=== PATIENT | female | born 1995 | race Caucasian/White ===

== ENCOUNTER → 2016-08-27 | Outpatient (CLI) | payer OTHER | LOC: MW.CHOBGYN 10:42 | PROVIDERS: ATTEND Obstetrics & Gynecology | DX: Z34.90 Encounter for supervision of normal pregnancy, unspecified, unspecified trimester (principal) | CPT/HCPCS: 81003 ==

== ENCOUNTER 2016-10-17 04:46 | Inpatient (IN) | payer OTHER ==
[~2016-10-17 04:46] MED LIST: Citric Acid/Sodium Citrate Solution 30 ML Cup PO SCH; Sodium Chloride 0.9% 10 ML Syringe FLUSH PRN; Sodium Chloride 0.9% 2.5 ML Syringe FLUSH PRN
[2016-10-17] MEDS ORDERED: ceFAZolin 2 GM in Premix Bag 1 BAG IV ONE (05:00)
[2016-10-17] MEDS: Lactated Ringers 1,000 ML IV SCH ×5 (05:29→18:33)
[2016-10-17] MEDS ORDERED: Octyl 2-Cyanoacrylate 1 Tube ONE (07:21)
[2016-10-17] MEDS ORDERED: Morphine PF 10 MG/10 ML SDV ONE (07:25)
[2016-10-17] MEDS ORDERED: Oxytocin 10 Units/1 ML SDV ONE (07:25)
[2016-10-17] MEDS ORDERED: ePHEDrine 50 MG/ML SDV ONE (07:25)
[2016-10-17] MEDS ORDERED: Ondansetron 4 MG/2 ML SDV ONE (07:25)
[2016-10-17] MEDS ORDERED: Sodium Chloride 0.9% 20 ML ONE ×2 (07:25→07:30)
[2016-10-17] MEDS ORDERED: ceFAZolin 1 GM Vial ONE (07:30)
--- NOTE | 2016-10-17 07:49 | PCM.PREANE ---
Preanesthetic Assessment - Procedure Proposed Procedure: 2nd - Anesthesia/Transfusion/Family Hx Anesthesia History: Prior Anesthesia Without Reaction (spinal for emergent c- section 2 yr ago, little memory of same) Family History of Anesthesia Reaction: No Transfusion History: No Prior Transfusion(s) Intubation History: Unknown - Review of Systems General: Other (GERD of , discomfort with ) Pulmonary: No Symptoms Cardiovascular: No Symptoms Gastrointestinal: Other (GERD) Neurological: No Symptoms Other: Reports: None - Physical Assessment NPO Status Date: 10/16/16 NPO Status Time: 22:00 Height: 5 ft 7 in Weight: 225 lb ASA Class: 2 Mental Status: Alert & Oriented x3 Airway Class: Mallampati = 1 Dentition: Reports: Normal Dentition Thyro-Mental Finger Breadths: 3 Mouth Opening Finger Breadths: 3 ROM/Head Extension: Full Lungs: Clear to auscultation, Normal respiratory effort Cardiovascular: Regular Rate, Regular Rhythm, No Murmurs Other: wearing glasses - Lab Values: Laboratory Last Values WBC 8.94 K/uL (4.0-11.0) 10/17/16 05:22 RBC 4.38 M/uL (4.30-5.90) 10/17/16 05:22 Hgb 12.6 g/dL (12.0-16.0) 10/17/16 05:22 Hct 37.6 % (36.0-46.0) 10/17/16 05:22 MCV 85.8 fL (80.0-98.0) 10/17/16 05:22 MCH 28.8 pg (27.0-32.0) 10/17/16 05:22 MCHC 33.5 g/dL (31.0-37.0) 10/17/16 05:22 RDW Std Deviation 41.0 fl (28.0-62.0) 10/17/16 05:22 RDW Coeff of Reyna 13 % (11.0-15.0) 10/17/16 05:22 Plt Count 263 K/uL (150-400) 10/17/16 05:22 MPV 10.80 fL (7.40-12.00) 10/17/16 05:22 Nucleated RBC % 0.0 /100WBC 10/17/16 05:22 Nucleated RBCs # 0 K/uL 10/17/16 05:22 Blood Type A NEGATIVE 10/17/16 05:22 Antibody Screen NEGATIVE 10/17/16 05:22 - Allergies Allergies/Adverse Reactions: Allergies Allergy/AdvReac Type Severity Reaction Status Date / Time No Known Allergies Allergy Verified 10/15/16 08:12 - Blood Blood Available: Yes Product(s) Available: PRBC (T and S) - Anesthesia Plan Pre-Op Medication Ordered: Antacids - Acknowledgements Anesthesia Type Planned: Spinal Pt an Appropriate Candidate for the Planned Anesthesia: Yes Alternatives and Risks of Anesthesia Discussed w Pt/Guardian: Yes Pt/Guardian Understands and Agrees with Anesthesia Plan: Yes PreAnesthesia Questionnaire HEENT History: Reports: Allergic Rhinitis, Other (See Below) Other HEENT History: wears glasses Respiratory History: Reports: Asthma, Other (See Below) Other Respiratory History: allergy induced asthma Gastrointestinal History: Reports: Other (See Below) Other Gastrointestinal History: heartburn with Genitourinary History: Reports: None 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: Psychiatric History: Reports: Anxiety, Depression Dermatologic History: Reports: Eczema Other Dermatologic History: eczema on arms - Past Surgical History Head Surgeries/Procedures: Reports: None Female Surgical History: Reports: Section - SUBSTANCE USE Smoking Status *Q: Never Smoker Recreational Drug Use History: No - HOME MEDS Home Medications: Home Meds Albuterol [IJD: Albuterol HFA] 2 puff INH ASDIRECTED PRN 10/15/16 [History] Fexofenadine/Pseudoephedrine [Latesha-D 24 Hour Tablet] 1 tab PO DAILY 10/15/16 [History] PNV95/Ferrous Fumarate/FA [ Vitamins Tablet] 1 tab PO DAILY 10/15/16 [ History] buPROPion HCl [Wellbutrin Xl] 150 mg PO DAILY 10/15/16 [History] - CURRENT (IN HOUSE) MEDS Current Meds: Current Medications Citric Acid/Sodium Citrate (Bicitra Solution) 30 ml PO .ONCE TSERING Last Admin: 10/17/16 06:50 Dose: 30 ml Lactated Ringer's (Ringers, Lactated) 1,000 mls @ 500 mls/hr IV .BOLUS TSERING Last Admin: 10/17/16 07:00 Dose: 500 mls/hr Sodium Chloride (Saline Flush) 10 ml FLUSH ASDIRECTED PRN PRN Reason: Keep Vein Open Sodium Chloride (Saline Flush) 2.5 ml FLUSH ASDIRECTED PRN PRN Reason: Keep Vein Open Discontinued Medications Cefazolin Sodium (Ancef) Confirm Administered Dose 2 gm .ROUTE .STK-MED ONE Stop: 10/17/16 07:31 Ephedrine Sulfate (Ephedrine Sulfate) Confirm Administered Dose 50 mg .ROUTE .STK-MED ONE Stop: 10/17/16 07:26 Cefazolin Sodium/Dextrose 2 gm (/ Premix) 50 mls @ 100 mls/hr IV ONETIME ONE Stop: 10/17/16 05:29 Sodium Chloride (Normal Saline) Confirm Administered Dose 20 mls @ as directed .ROUTE .STK-MED ONE Stop: 10/17/16 07:26 Sodium Chloride (Normal Saline) Confirm Administered Dose 20 mls @ as directed .ROUTE .STK-MED ONE Stop: 10/17/16 07:31 Morphine Sulfate (Duramorph Pf) Confirm Administered Dose 10 mg .ROUTE .STK-MED ONE Stop: 10/17/16 07:26 Octyl Cyanoacrylate (Dermabond Advance) Confirm Administered Dose 1 applic .ROUTE .STK-MED ONE Stop: 10/17/16 07:22 Ondansetron HCl (Zofran) Confirm Administered Dose 4 mg .ROUTE .STK-MED ONE Stop: 10/17/16 07:26 Oxytocin (Pitocin) Confirm Administered Dose 20 unit .ROUTE .STK-MED ONE Stop: 10/17/16 07:26
--- NOTE | 2016-10-17 07:55 | PCM.LDHP ---
L&D History of Present Illness - General Date of Service: 10/17/16 Admit Problem/Dx: Patient Status Order with Admit Dx/Problem 10/16/16 15:24 Patient Status [ADT] Routine Admission Diagnosis/Problem Admission Diagnosis/Problem - planned Source of Information: Patient History Limitations: Reports: No Limitations - History of Present Illness Improves with: Reports: None Worsens with: Reports: None Associated Symptoms: Reports: N - Related Data Allergies/Adverse Reactions: Allergies Allergy/AdvReac Type Severity Reaction Status Date / Time No Known Allergies Allergy Verified 10/15/16 08:12 Home Medications: Home Meds Albuterol [IJD: Albuterol HFA] 2 puff INH ASDIRECTED PRN 10/15/16 [History] Fexofenadine/Pseudoephedrine [Latesha-D 24 Hour Tablet] 1 tab PO DAILY 10/15/16 [History] PNV95/Ferrous Fumarate/FA [ Vitamins Tablet] 1 tab PO DAILY 10/15/16 [ History] buPROPion HCl [Wellbutrin Xl] 150 mg PO DAILY 10/15/16 [History] Past Medical History HEENT History: Reports: Allergic Rhinitis, Other (See Below) Other HEENT History: wears glasses Respiratory History: Reports: Asthma, Other (See Below) Other Respiratory History: allergy induced asthma Gastrointestinal History: Reports: Other (See Below) Other Gastrointestinal History: heartburn with Genitourinary History: Reports: 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: Psychiatric History: Reports: Anxiety, Depression Dermatologic History: Reports: Eczema Other Dermatologic History: eczema on arms - Past Surgical History Head Surgeries/Procedures: Reports: None Female Surgical History: Reports: Section Social & Family History - Tobacco Use Smoking Status *Q: Never Smoker - Recreational Drug Use Recreational Drug Use: No H&P Review of Systems - Review of Systems: Review Of Systems: See Below General: Reports: No Symptoms HEENT: Reports: No Symptoms Pulmonary: Reports: No Symptoms Cardiovascular: Reports: No Symptoms Gastrointestinal: Reports: No Symptoms Genitourinary: Reports: No Symptoms Musculoskeletal: Reports: No Symptoms Skin: Reports: No Symptoms Psychiatric: Reports: No Symptoms Neurological: Reports: No Symptoms Hematologic/Lymphatic: Reports: No Symptoms Immunologic: Reports: No Symptoms L&D Exam - Exam Exam: See Below - Vital Signs Weight: 102.058 kg - OB Specific Fundal Height In cm: 39 Contraction Intensity: Mild Movement: Active Heart Tones: Present Presentation: Vertex - Patient Data Lab Results Last 24 hrs: Laboratory Results - last 24 hr 10/17/16 10/17/16 Range/Units 05:22 05:22 WBC 8.94 (4.0-11.0) K/uL RBC 4.38 (4.30-5.90) M/uL Hgb 12.6 (12.0-16.0) g/dL Hct 37.6 (36.0-46.0) % MCV 85.8 (80.0-98.0) fL MCH 28.8 (27.0-32.0) pg MCHC 33.5 (31.0-37.0) g/dL RDW Std Deviation 41.0 (28.0-62.0) fl RDW Coeff of Reyna 13 (11.0-15.0) % Plt Count 263 (150-400) K/uL MPV 10.80 (7.40-12.00) fL Nucleated RBC % 0.0 /100WBC Nucleated RBCs # 0 K/uL Blood Type A NEGATIVE Antibody Screen NEGATIVE Result Diagrams: 10/17/16 05:22 Problem List Initiated/Reviewed/Updated: Yes Orders Last 24hrs: Active Orders 24 hr Category Date Time Status Patient Status [ADT] Routine ADT 10/16/16 15:24 Active Non Stress Test [RC] PER UNIT ROUTINE Care 10/16/16 15:24 Active Procedure Site Prep Instruct [RC] ASDIRECTED Care 10/16/16 15:24 Active Up ad Alejandra [RC] ASDIRECTED Care 10/16/16 15:24 Active Vital Signs [RC] PER UNIT ROUTINE Care 10/16/16 15:24 Active Citric Acid/Sodium Citrate [Bicitra Solution] Med 10/16/16 15:30 Active 30 ml PO .ONCE Lactated Ringers [Ringers, Lactated] 1,000 ml Med 10/16/16 15:30 Active IV .BOLUS Sodium Chloride 0.9% [Saline Flush] Med 10/16/16 15:24 Active 10 ml FLUSH ASDIRECTED PRN Sodium Chloride 0.9% [Saline Flush] Med 10/16/16 15:24 Active 2.5 ml FLUSH ASDIRECTED PRN Peripheral IV Insertion Adult [OM.PC] Routine Oth 10/16/16 15:24 Ordered Schedule Procedure [COMM] Per Unit Routine Oth 10/16/16 15:24 Ordered Resuscitation Status Routine Resus Stat 10/16/16 15:24 Ordered Medication Orders Citric Acid/Sodium Citrate (Bicitra Solution) 30 ml PO .ONCE TSERING Last Admin: 10/17/16 06:50 Dose: 30 ml Lactated Ringer's (Ringers, Lactated) 1,000 mls @ 500 mls/hr IV .BOLUS TSERING Last Admin: 10/17/16 07:00 Dose: 500 mls/hr Infusion: 10/17/16 07:00 Dose: 500 mls/hr Admin: 10/17/16 05:29 Dose: 500 mls/hr Sodium Chloride (Saline Flush) 10 ml FLUSH ASDIRECTED PRN PRN Reason: Keep Vein Open Sodium Chloride (Saline Flush) 2.5 ml FLUSH ASDIRECTED PRN PRN Reason: Keep Vein Open Assessment/Plan Comment:: Term admited for elective repeat C/section.
[2016-10-17] MEDS ORDERED: Acetaminophen/oxyCODONE 325-5 MG Tab PO PRN ×2 (08:45)
[2016-10-17] MEDS ORDERED: Lanolin 100% Cream 7 GM Tube TOP PRN (08:45)
[2016-10-17] MEDS ORDERED: Ibuprofen 800 MG Tab PO PRN (08:45)
[2016-10-17] MEDS ORDERED: Ondansetron 4 MG/2 ML SDV IV PRN (08:45)
[2016-10-17] MEDS ORDERED: diphenhydrAMINE 50 MG/ML SDV IVPUSH PRN (08:45)
[2016-10-17] MEDS ORDERED: Bisacodyl 10 MG Supp RECTAL PRN (08:45)
[2016-10-17] MEDS ORDERED: Nalbuphine 10 MG/1 ML Vial IVPUSH PRN (09:00)
[2016-10-17] MEDS ORDERED: Naloxone 0.4 MG/ML Syringe IVPUSH PRN (09:00)
[2016-10-17] MEDS: Ketorolac 30 MG/ML SDV IVPUSH SCH ×3 (09:23→21:52)
--- NOTE | 2016-10-17 10:35 | PCM.POSTAN ---
POST ANESTHESIA ASSESSMENT - MENTAL STATUS Mental Status: alert, oriented - RESPIRATORY Respiratory Status: respiratory rate WNL, airway patent, O2 saturation stable - CARDIOVASCULAR CV Status: pulse rate WNL, blood pressure stable - GASTROINTESTINAL GI Status: no symptoms - PAIN Pain Score: 0 (but she had pruritis - tx with Nubain, resolved) - POST OP HYDRATION Hydration Status: adequate & stable - OBSERVATIONS Free Text/Narrative:: Spinal at T12 level at discharge to phase II.
--- NOTE | 2016-10-17 11:08 | OR ---
SURGEON: Ge Perez MD DATE OF PROCEDURE: PREOPERATIVE DIAGNOSIS: Term , previous section, admitted for elective repeat section. POSTOPERATIVE DIAGNOSIS: Term , previous section, admitted for elective repeat section. OPERATION PERFORMED: Repeat low transverse section. 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 ESTIMATED BLOOD LOSS: 700 mL. COMPLICATIONS: None. FINDINGS: Normal uterus, tubes, and ovary. Male fetus. score reported to be 9 and 9 and weight 813. INDICATION FOR SURGERY: This patient had a previous section for CPD and she was admitted for elective repeat section. She was followed in our office. care was essentially uncomplicated and her GBS status was negative. PROCEDURE IN DETAIL: The patient was brought to the OR, properly identified, and after adequate level of spinal anesthesia, the patient was prepped and draped in sterile fashion as usual. A low transverse Pfannenstiel skin incision was done. Deepika fascia and rectus fascia were opened in the direction of the incision. The two recti muscles were and the peritoneal cavity was entered. Bladder flap was raised in the usual manner pushing the bladder away from the lower uterine segment. Low transverse uterine incision was done and extended manually. Hand and fetus were delivered, it was in a vertex position without any problem. The fetus was cried immediately, handed to the nurse resuscitator, who was present at the time of the delivery. The score was reported to be 9 and 9 and the weight 813. The placenta delivered spontaneous, complete, and intact and then repair of the lower uterine segment was done with 2-0 Vicryl continuous interlocking in 2 layers. Reperitonealization done with 3-0 Vicryl continuous and then the peritoneal cavity evacuated completely from all blood and blood clot and closed with 3-0 Vicryl continuous. The rectus fascia was closed with PDS double strand continuous and the Deepika fascia was closed with 3-0 Vicryl continuous and the skin was closed in a subcuticular fashion using 5-0 monofilamentous sutures. Instrument and sponge count was correct. The patient tolerated the procedure well and went to recovery room in stable and general condition. STEFAN / COMFORT /[id number]
[2016-10-17] MEDS: diphenhydrAMINE 50 MG/ML SDV IVPUSH PRN ×2 (11:24→20:24)
[2016-10-17] MEDS: Docusate Sodium 100 MG Cap PO SCH (21:51)
[2016-10-18] MEDS: Ketorolac 30 MG/ML SDV IVPUSH SCH ×2 (04:00→10:04)
--- NOTE | 2016-10-18 06:40 | PCM48HPAN ---
Post Anesthesia Note - EVALUATION WITHIN 48HRS OF ANESTHETIC Vital Signs in Normal Range: Yes Patient Participated in Evaluation: Yes Respiratory Function Stable: Yes Airway Patent: Yes Cardiovascular Function Stable: Yes Hydration Status Stable: Yes Pain Control Satisfactory: Yes Nausea and Vomiting Control Satisfactory: Yes Mental Status Recovered: Yes
[2016-10-18] MEDS: Docusate Sodium 100 MG Cap PO SCH (10:04)
--- NOTE | 2016-10-18 12:06 | PCM.PNPP ---
- General Info Date of Service: 10/18/16 Admission Dx/Problem (Free Text): Patient Status Order with Admit Dx/Problem 10/16/16 15:24 Patient Status [ADT] Routine Admission Diagnosis/Problem Admission Diagnosis/Problem - planned Functional Status: Reports: pain controlled, tolerating diet, ambulating, urinating - Review of Systems General: Reports: No Symptoms HEENT: Reports: no symptoms Pulmonary: Reports: no symptoms Cardiovascular: Reports: No Symptoms Gastrointestinal: Reports: No symptoms Genitourinary: Reports: no symptoms Musculoskeletal: Reports: no symptoms Skin: Reports: no symptoms Neurological: Reports: No Symptoms Psychiatric: Reports: no symptoms - General Info Date of Service: 10/18/16 - Patient Data Vital Signs - most recent: Last Vital Signs Temp 36.5 C 10/18/16 08:00 Pulse 88 10/18/16 08:00 Resp 16 10/18/16 08:00 BP 116/57 L 10/18/16 08:00 Pulse Ox 97 10/18/16 08:00 Weight - most recent: 102.058 kg I&O - last 24 hours: Intake & Output 10/17/16 10/18/16 10/18/16 22:59 06:59 14:59 Intake Total 970 Output Total 480 525 Balance 490 -525 Lab Results - last 24 hrs: Laboratory Results - last 24 hr 10/18/16 Range/Units 05:01 Hgb 10.4 L (12.0-16.0) g/dL Hct 32.2 L (36.0-46.0) % Med Orders - Current: Current Medications Bisacodyl (Dulcolax) 10 mg RECTAL .ONCE PRN PRN Reason: Constipation Citric Acid/Sodium Citrate (Bicitra Solution) 30 ml PO .ONCE TSERING Last Admin: 10/17/16 06:50 Dose: 30 ml Diphenhydramine HCl (Benadryl) 25 mg IVPUSH Q6H PRN PRN Reason: Itching or Nausea Docusate Sodium (Colace) 100 mg PO BID TSERING Last Admin: 10/18/16 10:04 Dose: 100 mg Emollient Ointment (Lansinoh Hpa) 0 gm TOP ASDIRECTED PRN PRN Reason: Sore Nipples Last Admin: 10/17/16 14:57 Dose: 1 tube Lactated Ringer's (Ringers, Lactated) 1,000 mls @ 500 mls/hr IV .BOLUS [facility] Last Infusion: 10/17/16 09:00 Dose: Infused Lactated Ringer's (Ringers, Lactated) 1,000 mls @ 125 mls/hr IV ASDIRECTED TSERING Last Admin: 10/17/16 18:33 Dose: 125 mls/hr Ibuprofen (Motrin) 800 mg PO Q8H PRN PRN Reason: mild pain or fever Ondansetron HCl (Zofran) 4 mg IV Q4H PRN PRN Reason: Nausea/Vomiting Oxycodone/Acetaminophen (Percocet 325-5 Mg) 1 tab PO Q4H PRN PRN Reason: Pain (moderate 4-6) Oxycodone/Acetaminophen (Percocet 325-5 Mg) 2 tab PO Q4H PRN PRN Reason: Pain (moderate 4-6) Sodium Chloride (Saline Flush) 10 ml FLUSH ASDIRECTED PRN PRN Reason: Keep Vein Open Sodium Chloride (Saline Flush) 2.5 ml FLUSH ASDIRECTED PRN PRN Reason: Keep Vein Open Discontinued Medications Cefazolin Sodium (Ancef) Confirm Administered Dose 2 gm .ROUTE .STK-MED ONE Stop: 10/17/16 07:31 Diphenhydramine HCl (Benadryl) 25 mg IVPUSH Q4H PRN PRN Reason: Itching Stop: 10/18/16 09:01 Last Admin: 10/17/16 20:24 Dose: 25 mg Ephedrine Sulfate (Ephedrine Sulfate) Confirm Administered Dose 50 mg .ROUTE .STK-MED ONE Stop: 10/17/16 07:26 Cefazolin Sodium/Dextrose 2 gm (/ Premix) 50 mls @ 100 mls/hr IV ONETIME ONE Stop: 10/17/16 05:29 Sodium Chloride (Normal Saline) Confirm Administered Dose 20 mls @ as directed .ROUTE .STK-MED ONE Stop: 10/17/16 07:26 Sodium Chloride (Normal Saline) Confirm Administered Dose 20 mls @ as directed .ROUTE .STK-MED ONE Stop: 10/17/16 07:31 Ketorolac Tromethamine (Toradol) 30 mg IVPUSH Q6H TSERING Stop: 10/18/16 08:46 Last Admin: 10/18/16 10:04 Dose: 30 mg Morphine Sulfate (Duramorph Pf) Confirm Administered Dose 10 mg .ROUTE .STK-MED ONE Stop: 10/17/16 07:26 Nalbuphine HCl (Nubain) 5 mg IVPUSH Q3H PRN PRN Reason: Pruritis Stop: 10/18/16 09:01 Last Admin: 10/17/16 09:25 Dose: 5 mg Naloxone HCl (Narcan) 0.1 mg IVPUSH ONETIME PRN PRN Reason: Resp. Depression Stop: 10/18/16 09:01 Octyl Cyanoacrylate (Dermabond Advance) Confirm Administered Dose 1 applic .ROUTE .STK-MED ONE Stop: 10/17/16 07:22 Ondansetron HCl (Zofran) Confirm Administered Dose 4 mg .ROUTE .STK-MED ONE Stop: 10/17/16 07:26 Oxytocin (Pitocin) Confirm Administered Dose 20 unit .ROUTE .STK-MED ONE Stop: 10/17/16 07:26 - Interaction Disposition, : in Room with Family Infant Interaction: Holding Infant Feeding: Breastfed ; Nursed Well Support Person: - Recovery Exam Fundal Tone: Firm Fundal Level: 1 Fingerbreadths Below Umbilicus Fundal Placement: Midline Lochia Amount: Scant Lochia Color: Rubra/Red Perineum Description: Intact, Minimal Bruising/Swelling Episiotomy/Laceration: None Bladder Status: Voiding Urinary Elimination: Voided - Exam General: alert, oriented, cooperative, no acute distress Lungs: Normal respiratory effort Abdomen: soft, no tenderness, no distension Extremities: no edema, no tenderness/swelling, no calf tenderness Skin: warm, dry, intact Wound/Incisions: healing well, dressing dry and intact, no drainage Neurological: no new focal deficit Psy/Mental Status: alert, normal affect, normal mood - Problem List & Annotations (1) delivery due to maternal disorder, delivered, curr hospitaliz SNOMED Code(s): 095806051 Code(s): O99.89 - OTH DISEASES AND CONDITIONS COMPL PREG/CHLDBRTH; O82 - ENCOUNTER FOR DELIVERY WITHOUT INDICATION Status: Acute Priority: High Current Visit: Yes - Problem List Review Problem List Initiated/Reviewed/Updated: Yes - Assessment Assessment:: Doing well, no complaints. Desires to discharge home today. Will evaluate this evening and make that call. - Plan Plan:: Term admited for elective repeat C/section. Stable, continue pp plan of care
[2016-10-18 12:24] VITALS: BP 128/63
--- NOTE | 2016-10-18 16:10 | PCM.DCSUM1 ---
Discharge Summary - Discharge Data Discharge Date: 10/18/16 Discharge Disposition: Home, Self-Care 01 Condition: Good - Patient Instructions Diet: Usual Diet as Tolerated Driving: Do Not Drive Showering/Bathing: May Shower Wound/Incision Care: Keep Operative Site/Wound Site Clean and Dry Notify Provider of: Fever, Increased Pain, Nausea and/or Vomiting - Discharge Plan Home Medications: Home Meds Albuterol [IJD: Albuterol HFA] 2 puff INH ASDIRECTED PRN 10/15/16 [History] Fexofenadine/Pseudoephedrine [Latesha-D 24 Hour Tablet] 1 tab PO DAILY 10/15/16 [History] PNV95/Ferrous Fumarate/FA [ Vitamins Tablet] 1 tab PO DAILY 10/15/16 [ History] buPROPion HCl [Wellbutrin Xl] 150 mg PO DAILY 10/15/16 [History] Patient Handouts: Delivery, Care After Referrals: [facility] [Outside] Ge Perez MD [Physician] - (1 week- October 25 @ 9:00am w/ Dr. Perez 6 week - November 22 @ 10:45am w/ Dr. Perez ) - General Info Date of Service: 10/18/16 Functional Status: Reports: pain controlled - Review of Systems General: Reports: No Symptoms HEENT: Reports: no symptoms Pulmonary: Reports: no symptoms Cardiovascular: Reports: No Symptoms Gastrointestinal: Reports: No symptoms Genitourinary: Reports: no symptoms Musculoskeletal: Reports: no symptoms Skin: Reports: no symptoms Neurological: Reports: No Symptoms Psychiatric: Reports: no symptoms - Patient Data Vitals - Most Recent: Last Vital Signs Temp 36.2 C 10/18/16 12:00 Pulse 77 10/18/16 12:00 Resp 16 10/18/16 12:00 BP 128/63 10/18/16 12:00 Pulse Ox 97 10/18/16 12:00 Weight - Most Recent: 102.058 kg I&O - Last 24 hours: Intake & Output 10/18/16 10/18/16 10/18/16 06:59 14:59 22:59 Output Total 525 Balance -525 Lab Results - Last 24 hrs: Laboratory Results - last 24 hr 10/18/16 Range/Units 05:01 Hgb 10.4 L (12.0-16.0) g/dL Hct 32.2 L (36.0-46.0) % Med Orders - Current: Current Medications Bisacodyl (Dulcolax) 10 mg RECTAL .ONCE PRN PRN Reason: Constipation Citric Acid/Sodium Citrate (Bicitra Solution) 30 ml PO .ONCE [facility] Last Admin: 10/17/16 06:50 Dose: 30 ml Diphenhydramine HCl (Benadryl) 25 mg IVPUSH Q6H PRN PRN Reason: Itching or Nausea Docusate Sodium (Colace) 100 mg PO BID [facility] Last Admin: 10/18/16 10:04 Dose: 100 mg Emollient Ointment (Lansinoh Hpa) 0 gm TOP ASDIRECTED PRN PRN Reason: Sore Nipples Last Admin: 10/17/16 14:57 Dose: 1 tube Lactated Ringer's (Ringers, Lactated) 1,000 mls @ 500 mls/hr IV .BOLUS [facility] Last Infusion: 10/17/16 09:00 Dose: Infused Lactated Ringer's (Ringers, Lactated) 1,000 mls @ 125 mls/hr IV ASDIRECTED [facility] Last Admin: 10/17/16 18:33 Dose: 125 mls/hr Ibuprofen (Motrin) 800 mg PO Q8H PRN PRN Reason: mild pain or fever Ondansetron HCl (Zofran) 4 mg IV Q4H PRN PRN Reason: Nausea/Vomiting Oxycodone/Acetaminophen (Percocet 325-5 Mg) 1 tab PO Q4H PRN PRN Reason: Pain (moderate 4-6) Oxycodone/Acetaminophen (Percocet 325-5 Mg) 2 tab PO Q4H PRN PRN Reason: Pain (moderate 4-6) Sodium Chloride (Saline Flush) 10 ml FLUSH ASDIRECTED PRN PRN Reason: Keep Vein Open Sodium Chloride (Saline Flush) 2.5 ml FLUSH ASDIRECTED PRN PRN Reason: Keep Vein Open Discontinued Medications Cefazolin Sodium (Ancef) Confirm Administered Dose 2 gm .ROUTE .STK-MED ONE Stop: 10/17/16 07:31 Diphenhydramine HCl (Benadryl) 25 mg IVPUSH Q4H PRN PRN Reason: Itching Stop: 10/18/16 09:01 Last Admin: 10/17/16 20:24 Dose: 25 mg Ephedrine Sulfate (Ephedrine Sulfate) Confirm Administered Dose 50 mg .ROUTE .STK-MED ONE Stop: 10/17/16 07:26 Cefazolin Sodium/Dextrose 2 gm (/ Premix) 50 mls @ 100 mls/hr IV ONETIME ONE Stop: 10/17/16 05:29 Sodium Chloride (Normal Saline) Confirm Administered Dose 20 mls @ as directed .ROUTE .STK-MED ONE Stop: 10/17/16 07:26 Sodium Chloride (Normal Saline) Confirm Administered Dose 20 mls @ as directed .ROUTE .STK-MED ONE Stop: 10/17/16 07:31 Ketorolac Tromethamine (Toradol) 30 mg IVPUSH Q6H TSERING Stop: 10/18/16 08:46 Last Admin: 10/18/16 10:04 Dose: 30 mg Morphine Sulfate (Duramorph Pf) Confirm Administered Dose 10 mg .ROUTE .STK-MED ONE Stop: 10/17/16 07:26 Nalbuphine HCl (Nubain) 5 mg IVPUSH Q3H PRN PRN Reason: Pruritis Stop: 10/18/16 09:01 Last Admin: 10/17/16 09:25 Dose: 5 mg Naloxone HCl (Narcan) 0.1 mg IVPUSH ONETIME PRN PRN Reason: Resp. Depression Stop: 10/18/16 09:01 Octyl Cyanoacrylate (Dermabond Advance) Confirm Administered Dose 1 applic .ROUTE .STK-MED ONE Stop: 10/17/16 07:22 Ondansetron HCl (Zofran) Confirm Administered Dose 4 mg .ROUTE .STK-MED ONE Stop: 10/17/16 07:26 Oxytocin (Pitocin) Confirm Administered Dose 20 unit .ROUTE .STK-MED ONE Stop: 10/17/16 07:26 - Exam General: Reports: alert, oriented HEENT: Reports: Pupils equal, Pupils reactive, EOMI, Mucous membr. moist/pink Neck: Reports: supple Lungs: Reports: Clear to auscultation, Normal respiratory effort Cardiovascular: Reports: Regular Rate, Regular Rhythm Abdomen: Reports: bowel sounds present, soft, no tenderness, no distension (Female) Exam: Normal External Exam, Normal Speculum Exam, Normal Bimanual Exam Rectal (Female) Exam: Normal Exam, Normal Rectal Tone Back Exam: Reports: Normal Inspection, Full Range of Motion Extremities: Reports: no edema, normal pulses Skin: Reports: warm, dry, intact Wound/Incisions: Reports: healing well Neurological: Reports: no new focal deficit Psy/Mental Status: Reports: alert, normal affect, normal mood *Q Meaningful Use (DIS) - VTE *Q VTE Criteria *Q: - Stroke *Q Stroke Criteria *Q: - AMI *Q AMI Criteria *Q:
== END 2016-10-18 18:10 | disposition home or self-care (01) | DRG 766 ==
LOC: MW.OB 04:46
PROVIDERS: ADMIT Obstetrics & Gynecology; ATTEND Obstetrics & Gynecology
PROC: 10D00Z1 Extraction of Products of Conception, Low, Open Approach (ICD-10-PCS; principal; 2016-10-17)
DX: O34.211 Maternal care for low transverse scar from previous cesarean delivery (principal); Z3A.40 40 weeks gestation of pregnancy; Z37.0 Single live birth
CPT/HCPCS: 01961; 36415; 51703; 85014; 85018; 85027; 86850; 86900; 86901; A9270-GY; J0690; J1200; J1885; J2270; J2300; J2405; J2590; J7120

== ENCOUNTER 2016-10-27 19:33 | Emergency (ER) | payer OTHER ==
[2016-10-27 19:43] VITALS: BP 115/78
[2016-10-27] MEDS ORDERED: Ketorolac 30 MG/ML SDV IVPUSH ONE (19:43)
[2016-10-27] MEDS ORDERED: Alum Hydrox/Mag Hydrox/Simeth 15 ML, Metoclopramide 5 MG, Lidocaine 2% 5 ML PO ONE ×3 (19:43)
[2016-10-27] MEDS ORDERED: Famotidine 20 MG/2 ML SDV IVPUSH ONE (19:43)
[2016-10-27] MEDS ORDERED: Aspirin 81 MG Tab.Chew PO ONE (19:43)
[2016-10-27] MEDS ORDERED: Sodium Chloride 0.9% 10 ML Syringe FLUSH PRN (19:43)
[2016-10-27] MEDS ORDERED: Sodium Chloride 0.9% 2.5 ML Syringe FLUSH PRN (19:43)
[2016-10-27 20:17] LABS: CHLORIDE,CL 108 mmol/L (98-110); SODIUM,NA 139 mmol/L (136-146)
--- NOTE | 2016-10-27 21:20 | EDM.PDOC ---
ED HPI GENERAL MEDICAL PROBLEM - General Chief Complaint: Chest Pain Stated Complaint: CHEST PAIN Time Seen by Provider: 10/27/16 19:40 Source of Information: Reports: Patient History Limitations: Reports: No Limitations - History of Present Illness INITIAL COMMENTS - FREE TEXT/NARRATIVE: History of present illness: [21-year-old female presenting with acute chest pain. Patient indicates that she has substernal pressure and increases to pain. Patient indicates that it is worse when she was walking up a flight of stairs. Patient indicates that she is 10 days from a and that she has been taking it easy around the house but she was going up some stairs and noticed this worsening pain that also seemed to make her feel lightheaded and dizzy.] Review of systems: As per history of present illness and below otherwise all systems reviewed and negative. Past medical history: As per history of present illness and as reviewed below otherwise noncontributory. Surgical history: As per history of present illness and as reviewed below otherwise noncontributory. Social history: No reported history of drug or alcohol abuse. Family history: As per history of present illness and as reviewed below otherwise noncontributory. Physical exam: HEENT: Atraumatic, normocephalic, pupils reactive, negative for conjunctival pallor or scleral icterus, mucous membranes moist, throat clear, neck supple, nontender, trachea midline. Lungs: Clear to auscultation, breath sounds equal bilaterally, chest nontender. Heart: S1S2, regular, negative for clicks, rubs, or JVD. Abdomen: Soft, nondistended, nontender. Negative for masses or hepatosplenomegaly. Negative for costovertebral tenderness. Pelvis: Stable nontender. Genitourinary: Deferred. Rectal: Deferred. Extremities: Atraumatic, negative for cords or calf pain. Neurovascular unremarkable. Neuro: Awake, alert, oriented. Cranial nerves II through XII unremarkable. Cerebellum unremarkable. Motor and sensory unremarkable throughout. Exam nonfocal. Global assessment is benign save is noted in the subjective complaint cited in the history of present illness. Patient's vital signs are stable and pulse ox is greater than 95% as noted in the vital signs. Patient with elevated d-dimer and inability to obtain peripheral IV access discussion was had in regards to a central line this was discussed with patient' s as far as risk-benefit patient declined further intervention and indicated she would desire to sign out AMA despite discussion of risks and potential complications and better outcomes. Diagnostics: [CBC, CMP, PT/INR, d-dimer, troponin, ] Therapeutics: [IV fluids,] Impression: [Atypical chest pain] Plan: [Leave AMA] Definitive disposition and diagnosis as appropriate pending reevaluation and review of above. CHEST Pain Score (Numeric/FACES): 8 - Related Data Allergies Allergy/AdvReac Type Severity Reaction Status Date / Time No Known Allergies Allergy Verified 10/27/16 19:39 Home Meds: Home Meds Albuterol [IJD: Albuterol HFA] 2 puff INH ASDIRECTED PRN 10/15/16 [History] Fexofenadine/Pseudoephedrine [Latesha-D 24 Hour Tablet] 1 tab PO DAILY 10/15/16 [History] PNV95/Ferrous Fumarate/FA [ Vitamins Tablet] 1 tab PO DAILY 10/15/16 [ History] buPROPion HCl [Wellbutrin Xl] 150 mg PO DAILY 10/15/16 [History] Past Medical History - Past Health History Medical/Surgical History: Denies Medical/Surgical History HEENT History: Reports: Allergic Rhinitis, Other (See Below) Other HEENT History: wears glasses Respiratory History: Reports: Asthma, Other (See Below) Other Respiratory History: allergy induced asthma Gastrointestinal History: Reports: Other (See Below) Other Gastrointestinal History: heartburn with Genitourinary History: Reports: None [employer] History: Reports: Psychiatric History: Reports: Anxiety, Depression Dermatologic History: Reports: Eczema Other Dermatologic History: eczema on arms - Past Surgical History Head Surgeries/Procedures: Reports: None Female Surgical History: Reports: Section Social & Family History - Family History Family Medical History: Noncontributory - Tobacco Use Smoking Status *Q: Never Smoker - Caffeine Use Caffeine Use: Reports: Tea Caffeine Use Comment: 1 cup daily - Recreational Drug Use Recreational Drug Use: No ED ROS GENERAL - Review of Systems Review Of Systems: See Below (See history of present illness) ED EXAM, GENERAL - Physical Exam Exam: See Below (See history of present illness) Course - Vital Signs Last Recorded V/S: Last Vital Signs Temp 36.9 C 10/27/16 19:39 Pulse 73 10/27/16 19:39 Resp 20 10/27/16 19:39 BP 115/78 10/27/16 19:39 Pulse Ox 97 10/27/16 19:39 - Orders/Labs/Meds Orders: Active Orders 24 hr Category Date Time Status Cardiac Monitoring [RC] . DIRECTED Care 10/27/16 19:43 Active EKG Documentation Completion [RC] STAT Care 10/27/16 19:41 Active CTA Chest W WO Contrast [Ang Chest] [CT] Stat Exams 10/27/16 20:20 Ordered Chest 1V Frontal [CR] Stat Exams 10/27/16 19:43 Taken Sodium Chloride 0.9% [Saline Flush] Med 10/27/16 19:43 Active 10 ml FLUSH ASDIRECTED PRN Sodium Chloride 0.9% [Saline Flush] Med 10/27/16 19:43 Active 2.5 ml FLUSH ASDIRECTED PRN Saline Lock Insert [OM.PC] Stat Oth 10/27/16 19:43 Ordered Medication Orders Sodium Chloride (Saline Flush) 10 ml FLUSH ASDIRECTED PRN PRN Reason: Keep Vein Open Last Admin: 10/27/16 19:56 Dose: 10 ml Sodium Chloride (Saline Flush) 2.5 ml FLUSH ASDIRECTED PRN PRN Reason: Keep Vein Open Last Admin: 10/27/16 19:56 Dose: 2.5 ml Labs: Laboratory Tests 10/27/16 10/27/16 10/27/16 Range/Units 19:45 19:45 19:45 WBC 7.15 (4.0-11.0) K/uL RBC 4.51 (4.30-5.90) M/uL Hgb 13.0 (12.0-16.0) g/dL Hct 38.9 (36.0-46.0) % MCV 86.3 (80.0-98.0) fL MCH 28.8 (27.0-32.0) pg MCHC 33.4 (31.0-37.0) g/dL RDW Std Deviation 41.1 (28.0-62.0) fl RDW Coeff of Reyna 13 (11.0-15.0) % Plt Count 370 (150-400) K/uL MPV 9.80 (7.40-12.00) fL Neut % (Auto) 67.2 (48.0-80.0) % Lymph % (Auto) 26.2 (16.0-40.0) % [place] % (Auto) 5.7 (0.0-15.0) % Eos % (Auto) 0.6 (0.0-7.0) % Baso % (Auto) 0.3 (0.0-1.5) % Neut # (Auto) 4.8 (1.4-5.7) K/uL Lymph # (Auto) 1.9 (0.6-2.4) K/uL [place] # (Auto) 0.4 (0.0-0.8) K/uL Eos # (Auto) 0.0 (0.0-0.7) K/uL Baso # (Auto) 0.0 (0.0-0.1) K/uL Nucleated RBC % 0.0 /100WBC Nucleated RBCs # 0 K/uL INR 0.98 (0.86-1.11) D-Dimer, Quantitative 1.67 H (0.0-0.52) mg/LFEU Sodium 139 (136-146) mmol/L Potassium 4.2 (3.5-5.1) mmol/L Chloride 108 (98-110) mmol/L Carbon Dioxide 19 L (21-31) mmol/L BUN 9 (6.0-23.0) mg/dL Creatinine 0.8 (0.6-1.5) mg/dL Est Cr Clr Drug Dosing 108.17 mL/min Estimated GFR (MDRD) > 60.0 ml/min Glucose 98 (60-110) mg/dL Calcium 10.9 H (8.8-10.8) mg/dL Total Bilirubin 0.5 (0.1-1.5) mg/dL AST 19 (5-40) IU/L ALT 24 (8-54) IU/L Alkaline Phosphatase 117 (40-150) Troponin I (0.0-0.29) NG/ML Total Protein 7.5 (6.0-8.0) g/dL Albumin 4.1 (3.5-5.0) g/dL Globulin 3.4 (2.0-3.5) g/dL Albumin/Globulin Ratio 1.2 L (1.3-2.8) Amylase 43 (10-90) U/L Lipase 18 (7-80) U/L Urine Color Urine Appearance Urine pH (5.0-8.0) Ur Specific [place] (1.001-1.035) Urine Protein (NEGATIVE) mg/dL Urine Glucose (UA) (NEGATIVE) mg/dL Urine Ketones (NEGATIVE) mg/dL Urine Occult Blood (NEGATIVE) Urine Nitrite (NEGATIVE) Urine Bilirubin (NEGATIVE) Urine Urobilinogen (<2.0) EU/dL Ur Leukocyte Esterase (NEGATIVE) Urine RBC (0-2/HPF) Urine WBC (0-5/HPF) Ur Epithelial Cells (NONE-FEW) Amorphous Sediment (NEGATIVE) Urine Bacteria (NEGATIVE) Urine Mucus (NONE-MOD) 10/27/16 10/27/16 Range/Units 19:45 20:45 WBC (4.0-11.0) K/uL RBC (4.30-5.90) M/uL Hgb (12.0-16.0) g/dL Hct (36.0-46.0) % MCV (80.0-98.0) fL MCH (27.0-32.0) pg MCHC (31.0-37.0) g/dL RDW Std Deviation (28.0-62.0) fl RDW Coeff of Reyna (11.0-15.0) % Plt Count (150-400) K/uL MPV (7.40-12.00) fL Neut % (Auto) (48.0-80.0) % Lymph % (Auto) (16.0-40.0) % [place] % (Auto) (0.0-15.0) % Eos % (Auto) (0.0-7.0) % Baso % (Auto) (0.0-1.5) % Neut # (Auto) (1.4-5.7) K/uL Lymph # (Auto) (0.6-2.4) K/uL [place] # (Auto) (0.0-0.8) K/uL Eos # (Auto) (0.0-0.7) K/uL Baso # (Auto) (0.0-0.1) K/uL Nucleated RBC % /100WBC Nucleated RBCs # K/uL INR (0.86-1.11) D-Dimer, Quantitative (0.0-0.52) mg/LFEU Sodium (136-146) mmol/L Potassium (3.5-5.1) mmol/L Chloride (98-110) mmol/L Carbon Dioxide (21-31) mmol/L BUN (6.0-23.0) mg/dL Creatinine (0.6-1.5) mg/dL Est Cr Clr Drug Dosing mL/min Estimated GFR (MDRD) ml/min Glucose (60-110) mg/dL Calcium (8.8-10.8) mg/dL Total Bilirubin (0.1-1.5) mg/dL AST (5-40) IU/L ALT (8-54) IU/L Alkaline Phosphatase (40-150) Troponin I < 0.10 (0.0-0.29) NG/ML Total Protein (6.0-8.0) g/dL Albumin (3.5-5.0) g/dL Globulin (2.0-3.5) g/dL Albumin/Globulin Ratio (1.3-2.8) Amylase (10-90) U/L Lipase (7-80) U/L Urine Color YELLOW Urine Appearance SLT CLOUDY Urine pH 6.5 (5.0-8.0) Ur Specific [place] 1.015 (1.001-1.035) Urine Protein TRACE (NEGATIVE) mg/dL Urine Glucose (UA) NEGATIVE (NEGATIVE) mg/dL Urine Ketones NEGATIVE (NEGATIVE) mg/dL Urine Occult Blood LARGE H (NEGATIVE) Urine Nitrite NEGATIVE (NEGATIVE) Urine Bilirubin NEGATIVE (NEGATIVE) Urine Urobilinogen 0.2 (<2.0) EU/dL Ur Leukocyte Esterase LARGE (NEGATIVE) Urine RBC 1-4 (0-2/HPF) Urine WBC 15-20 (0-5/HPF) Ur Epithelial Cells FEW (NONE-FEW) Amorphous Sediment FEW (NEGATIVE) Urine Bacteria 1+ H (NEGATIVE) Urine Mucus FEW (NONE-MOD) Meds: Medications Generic Name Dose Route Start Last Admin Trade Name Freq PRN Reason Stop Dose Admin Sodium Chloride 10 ml 10/27/16 19:43 10/27/16 19:56 Saline Flush FLUSH 10 ml ASDIRECTED PRN Administration Keep Vein Open Sodium Chloride 2.5 ml 10/27/16 19:43 10/27/16 19:56 Saline Flush FLUSH 2.5 ml ASDIRECTED PRN Administration Keep Vein Open Discontinued Medications Generic Name Dose Route Start Last Admin Trade Name Karlie PRN Reason Stop Dose Admin Aspirin 324 mg 10/27/16 19:43 10/27/16 19:55 Aspirin PO 10/27/16 19:44 324 mg ONETIME ONE Administration Al Hydroxide/Mg Hydroxide 15 0 ml 10/27/16 19:43 10/27/16 19:58 ml/ Metoclopramide HCl 5 mg/ PO 10/27/16 19:44 25 each Lidocaine HCl 5 ml ONETIME ONE Administration Famotidine 20 mg 10/27/16 19:43 Pepcid IVPUSH 10/27/16 19:44 ONETIME ONE Ketorolac Tromethamine 30 mg 10/27/16 19:43 Toradol IVPUSH 10/27/16 19:44 ONETIME ONE Departure - Departure Time of Disposition: 22:06 Disposition: Against Medical Advice 07 Condition: Good Clinical Impression: Atypical chest pain - Discharge Information Forms: ED Department Discharge Additional Instructions: The following information is given to patients seen in the emergency department who are being discharged to home. This information is to outline your options for follow-up care. We provide all patients seen in our emergency department with a follow-up referral. The need for follow-up, as well as the timing and circumstances, are variable depending upon the specifics of your emergency department visit. If you don't have a primary care physician on staff, we will provide you with a referral. We always advise you to contact your personal physician following an emergency department visit to inform them of the circumstance of the visit and for follow-up with them and/or the need for any referrals to a consulting specialist. The emergency department will also refer you to a specialist when appropriate. This referral assures that you have the opportunity for follow-up care with a specialist. All of these measure are taken in an effort to provide you with optimal care, which includes your follow-up. Under all circumstances we always encourage you to contact your private physician who remains a resource for coordinating your care. When calling for follow-up care, please make the office aware that this follow-up is from your recent emergency room visit. If for any reason you are refused follow-up, please contact the [facility] Emergency Department at and asked to speak to the emergency department charge nurse. You have decided to leave AMA if your pain becomes worse and/or you become short of breath is imperative that you down 911 and return for immediate intervention - My Orders Last 24 Hours: My Active Orders 10/27/16 19:43 Cardiac Monitoring [RC] . DIRECTED Chest 1V Frontal [CR] Stat Sodium Chloride 0.9% [Saline Flush] 10 ml FLUSH ASDIRECTED PRN Sodium Chloride 0.9% [Saline Flush] 2.5 ml FLUSH ASDIRECTED PRN Saline Lock Insert [OM.PC] Stat - Assessment/Plan Last 24 Hours: My Active Orders 10/27/16 19:43 Cardiac Monitoring [RC] . DIRECTED Chest 1V Frontal [CR] Stat Sodium Chloride 0.9% [Saline Flush] 10 ml FLUSH ASDIRECTED PRN Sodium Chloride 0.9% [Saline Flush] 2.5 ml FLUSH ASDIRECTED PRN Saline Lock Insert [OM.PC] Stat
--- NOTE | 2016-10-27 22:22 | PCM.SN ---
- Free Text/Narrative Note: Notified by nursing for help placing large bore IV placement for CTA of chest. I was unsuccessful 4 times under ultrasound. Discussed possibility of placing EJ with Dr Montilla. Dr Montilla spoke with the patient who at this time wishes to leave AMA.
--- NOTE | 2016-10-28 17:30 | CR ---
EXAM DATE: 10/27/16 PATIENT'S AGE: 21 Patient: KANDI HERR Facility: [place], [place] Site . Site : 1995 Study: XRay Chest [id number] 8:09:02 PM Ordering Physician: Rocío Donovan Final Report: INDICATION: chest pain x1 week TECHNIQUE: Chest 1 view COMPARISON: None FINDINGS: Cardiovascular and mediastinum: Heart size and vasculature are normal in caliber and appearance. Mediastinum is within normal limits. Lungs and pleural space: No focal consolidation. No sign of pleural effusion. No pneumothorax. Bones and soft tissues: No significant findings. IMPRESSION: No acute cardiopulmonary disease. Dictated by Slick Carcamo MD @ 10/27/2016 8:17:16 PM Dictated by: Slick Carcamo MD @ 10/27/2016 20:17:26 (Electronic Signature) Report Signed by Proxy. [email or web address]
== END 2016-10-27 22:29 | disposition left against medical advice (07) ==
LOC: MW.ED 19:33
DX: R07.89 Other chest pain (principal); J45.909 Unspecified asthma, uncomplicated; Z79.899 Other long term (current) drug therapy
CPT/HCPCS: 71010; 80053; 81001; 82150; 83690; 84484; 85025; 85379; 85610; 99285; A9270; 93005; 99283; J1885